=== PATIENT | male | born 2000 | race Caucasian/White ===

== ENCOUNTER 2021-06-27 20:46 | Emergency (ER) | payer SELFPAY ==
[2021-06-27] MEDS ORDERED: Lidocaine 1% 10 ML MDV INJECT ONE (21:20)
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
== END 2021-06-27 22:55 | disposition home or self-care (01) ==
LOC: JD.ED 20:46
DX: S01.01XA Laceration without foreign body of scalp, initial encounter (principal); S01.412A Laceration without foreign body of left cheek and temporomandibular area, initial encounter; Y04.0XXA Assault by unarmed brawl or fight, initial encounter; Y92.89 Other specified places as the place of occurrence of the external cause; Y99.0 Civilian activity done for income or pay
CPT/HCPCS: 12001; 12013; 99283-25